=== PATIENT | male | born 1990 | race Caucasian/White ===

== ENCOUNTER 2025-08-14 06:48 | Emergency (ER) | payer MEDICAID ==
[~2025-08-14] VITALS: Ht 167.6 cm; Wt 88.0 kg
[2025-08-14] MEDS: OLANZAPINE 10 MG/VIAL IM ONE (07:10)
[2025-08-14 07:14] VITALS: O2SAT 95
[2025-08-14 07:45] LABS: BASOPHILS % 1.4 % (0.0-2.0); EOSINOPHILS % 3.0 % (0.0-5.0); HEMATOCRIT. 39.7 % (42.0-52.0); HEMOGLOBIN. 12.7 g/dL (14.0-18.0); LYMPHOCYTES % 21.7 % (20.0-50.0); MEAN PLATELET VOLUME 10.6 fl (7.4-10.4); MONOCYTES % 6.2 % (2.0-8.0); NEUTROPHILS % 67.7 % (40.0-76.0); PLATELET 228 x1000/uL (130-400); RED BLOOD CELL COUNT 4.35 mill/uL (4.7-6.1); RED CELL DISTRIBUTION WIDTH 14.5 % (11.6-14.6)
[2025-08-14 07:57] LABS: CREATININE 0.7 mg/dL (0.6-1.3)
[2025-08-14 07:58] LABS: UREA NITROGEN BLOOD 7 mg/dL (9-23)
[2025-08-14] MEDS ORDERED: LORAZEPAM 2MG/ML UD SYRINGE IV PRN (10:45)
[2025-08-14] MEDS ORDERED: ACETAMINOPHEN 325MG TABLET PO PRN ×2 (10:45)
[2025-08-14] MEDS ORDERED: ONDANSETRON HCL 4MG/2ML INJ IV PRN (10:45)
[2025-08-14] MEDS ORDERED: CLONIDINE 0.1MG TABLET PO PRN (10:45)
[2025-08-14] MEDS ORDERED: IPRATROPIUM/ALBUTEROL 0.5-3(2.5)MG/3ML NEB HHN PRN (10:45)
[2025-08-14] MEDS: THIAMINE HCL 100MG TABLET PO SCH (11:09)
[2025-08-14] MEDS: FOLIC ACID 1MG TABLET PO SCH (11:09)
[2025-08-14 12:08] LABS: CLARITY URINE CLEAR (CLEAR); COLOR URINE YELLOW (YELLOW); GLUCOSE URINE NEGATIVE (NEGATIVE); KETONES URINE NEGATIVE (NEGATIVE); LEUKOCYTE ESTERASE URINE NEGATIVE (NEGATIVE); NITRITE URINE NEGATIVE (NEGATIVE); OCCULT BLOOD URINE NEGATIVE (NEGATIVE); PH URINE 6.0 (4.5-8.0); PROTEIN URINE NEGATIVE (NEGATIVE); SPECIFIC GRAVITY URINE 1.008 (1.005-1.030); UROBILINOGEN URINE 0.2 E.U./dL (0.2-1.0)
[2025-08-14 12:15] VITALS: BP 118/56; PULSE 75; RESP 15; TEMP 36.8; O2SAT 99
[2025-08-14 12:41] LABS: *AMPHETAMINES SCREEN URINE NEGATIVE (NEGATIVE); *BARBITURATES SCREEN URINE NEGATIVE (NEGATIVE); *BENZODIAZEPINES SCREEN URINE PRESUMPTIVE POSITIVE (NEGATIVE); *COCAINE SCREEN URINE NEGATIVE (NEGATIVE); METHADONE URINE SCREEN NEGATIVE (NEGATIVE); OPIATES URINE SCREEN NEGATIVE (NEGATIVE)
[2025-08-14 12:42] LABS: CANNABINOID URINE SCREEN NEGATIVE (NEGATIVE); ECSTASY MDMA SCREEN URINE NEGATIVE (NEGATIVE); PHENCYCLIDINE URINE SCREEN NEGATIVE (NEGATIVE)
== END 2025-08-14 12:17 | disposition home or self-care (01) ==
LOC: ER 06:48 → EDBEDREQ 10:12 → EDBEDREQTM 10:12 → CANBEDREQ 11:36 → ER 12:17
DX: G93.40 Encephalopathy, unspecified (principal); F10.90 Alcohol use, unspecified, uncomplicated; Z78.1 Physical restraint status; Z79.899 Other long term (current) drug therapy; Y90.9 Presence of alcohol in blood, level not specified
CPT/HCPCS: 80305; 80048; 81003; 80320; 85025; 36415; 96372; 99291; J3490; G0480